=== PATIENT | male | born 1995 | race Two or more races ===

== ENCOUNTER 2016-07-19 23:52 | Emergency (ER) | payer MEDICAID ==
[~2016-07-19] VITALS: Ht 180.3 cm; Wt 118.4 kg
[~2016-07-19 23:52] MED LIST: ALBUPOW26
[2016-07-20 01:01] VITALS: BP 118/48
== END 2016-07-20 02:42 | disposition home or self-care (01) ==
LOC: ER 07-20 00:01
DX: L02.31 Cutaneous abscess of buttock (principal); F17.210 Nicotine dependence, cigarettes, uncomplicated; E66.01 Morbid (severe) obesity due to excess calories; Z68.34 Body mass index [BMI] 34.0-34.9, adult

== ENCOUNTER 2017-01-05 11:18 | Emergency (ER) | payer MEDICAID ==
[~2017-01-05] VITALS: Ht 180.3 cm; Wt 113.4 kg
[2017-01-05 11:24] VITALS: BP 145/95
== END 2017-01-05 14:23 | disposition left against medical advice (07) ==
LOC: ER 11:18
DX: R42 Dizziness and giddiness (principal); F12.10 Cannabis abuse, uncomplicated; Z53.21 Procedure and treatment not carried out due to patient leaving prior to being seen by health care provider

== ENCOUNTER 2021-05-24 07:27 | Emergency (ER) | payer MEDICAID ==
[~2021-05-24] VITALS: Ht 182.9 cm; Wt 129.3 kg
[2021-05-24 07:42] VITALS: BP 130/75
[2021-05-24] MEDS ORDERED: KETOROLAC TROMETH 60MG/2ML VIAL IM ONE (07:45)
[2021-05-24] MEDS ORDERED: IBUP800T27 PO (08:44)
[2021-05-31] MEDS ORDERED: APIX5TAB PO ×3 (11:51→12:02)
== END 2021-05-24 08:51 | disposition home or self-care (01) ==
LOC: ER 07:27
DX: S46.911A Strain of unspecified muscle, fascia and tendon at shoulder and upper arm level, right arm, initial encounter (principal); F17.210 Nicotine dependence, cigarettes, uncomplicated; X58.XXXA Exposure to other specified factors, initial encounter; Y93.89 Activity, other specified; Y99.8 Other external cause status
CPT/HCPCS: 73030; 96372; 99283; J1885

== ENCOUNTER 2021-05-26 21:30 | Inpatient (IN) | payer MEDICAID ==
[~2021-05-26] VITALS: Ht 182.9 cm; Wt 129.5 kg
[~2021-05-26 21:30] MED LIST changes: +IBUP800T27 PO
[2021-05-26] MEDS ORDERED: SODIUM CHLORIDE 0.9% 1,000 ML IVB ONE (22:15)
[2021-05-26] MEDS ORDERED: LIDOCAINE 5% TOPICAL PATCH TOP ONE (22:30)
[2021-05-26] MEDS ORDERED: ONDANSETRON HCL 4 MG/2 ML VIAL IV ONE (22:30)
[2021-05-26] MEDS ORDERED: MORPHINE SULFATE 4 MG/ML SYR/VIAL IV ONE (22:30)
[2021-05-26 23:41] LABS: Basophils # (auto) 0 10 ^3/uL (0-0.2); Basophils % (auto) 0.5 % (0.0-2.0); Eosinophils # (auto) 0.2 10 ^3/uL (0-0.8); Eosinophils % (auto) 2.5 % (0.0-7.0); Hematocrit 40.6 % (41.0-53.0); Hemoglobin 13.5 g/dL (13.5-17.5); Lymphocytes # (auto) 1.1 10 ^3/uL (0.4-5.4); Lymphocytes % (auto) 13.8 % (10.0-50.0); Mean Corpuscular Hemoglobin 30.1 pg (28.0-32.0); Mean Corpuscular Hgb Conc. 33.4 g/dL (32.0-36.0); Mean Corpuscular Volume 90.3 fL (80.0-100.0); Monocytes # (auto) 0.8 10 ^3/uL (0-1.3); Monocytes % (auto) 9.5 % (0.0-12.0); Neutrophils # (auto) 5.9 10 ^3/uL (1.6-8.6); Neutrophils % (auto) 73.7 % (37.0-80.0); Nucleated Red Blood Cells % 0.1 %; Red Blood Cells 4.49 10^6/uL (4.5-5.90)
[2021-05-26 23:55] LABS: Potassium 3.7 mmol/L (3.5-5.1)
[2021-05-27 00:05] LABS: BUN/Creatinine Ratio 12.6; Calcium 8.1 mg/dL (8.5-10.1)
[2021-05-27] MEDS ORDERED: IOHEXOL 350 MG/ML 100ML IJ ONE (00:17)
[2021-05-27] MEDS ORDERED: ONDANSETRON HCL 4 MG/2 ML VIAL IV ONE (09:00)
[2021-05-27] MEDS ORDERED: MORPHINE SULFATE 4 MG/ML SYR/VIAL IV ONE (09:00)
[2021-05-27] MEDS ORDERED: HEPARIN SODIUM (PORCINE) 5000 UNITS/ML 1ML VIAL IV ONE (12:15)
[2021-05-27] MEDS ORDERED: NITROGLYCERIN 0.4 MG SL TAB SL PRN (12:45)
[2021-05-27] MEDS ORDERED: HEPARIN DRIP/D5W 100UNITS/ML 250 ML IV SCH (13:00)
[2021-05-27] MEDS: HEPARIN DRIP/D5W 100UNITS/ML 250 ML IV SCH (13:15)
[2021-05-27 15:07] LABS: Basophils # (auto) 0 10 ^3/uL (0-0.2); Basophils % (auto) 0.4 % (0.0-2.0); Eosinophils # (auto) 0.2 10 ^3/uL (0-0.8); Hematocrit 40.3 % (41.0-53.0); Hemoglobin 13.5 g/dL (13.5-17.5); Lymphocytes # (auto) 1.2 10 ^3/uL (0.4-5.4); Lymphocytes % (auto) 14.4 % (10.0-50.0); Mean Corpuscular Hemoglobin 30.5 pg (28.0-32.0); Mean Corpuscular Hgb Conc. 33.6 g/dL (32.0-36.0); Mean Corpuscular Volume 90.9 fL (80.0-100.0); Monocytes # (auto) 0.7 10 ^3/uL (0-1.3); Monocytes % (auto) 9.1 % (0.0-12.0); Neutrophils % (auto) 74.1 % (37.0-80.0); Red Blood Cells 4.44 10^6/uL (4.5-5.90); White Blood Cell 8.1 10^3/uL (4.4-10.8)
[2021-05-27 15:21] LABS: INR 1.09 (0.9-1.15); Partial Thromboplastin Time 31.9 sec (23.6-33.0)
[2021-05-27] MEDS: cefTRIAXone 1GM/50ML D5W 50 ML IV SCH (16:15)
[2021-05-27] MEDS: AZITHROMYCIN 500MG/ 250ML 250 ML IV SCH (17:53)
[2021-05-27 20:43] LABS: INR 1.11 (0.9-1.15); Partial Thromboplastin Time 36.2 sec (23.6-33.0)
[2021-05-27] MEDS: MORPHINE SULFATE INJECTION 2 MG/ML SYRG IV PRN (22:22)
[2021-05-28] MEDS: HEPARIN DRIP/D5W 100UNITS/ML 250 ML IV SCH ×3 (01:45→23:30)
[2021-05-28 04:08] LABS: INR 1.11 (0.9-1.15); Partial Thromboplastin Time 40.4 sec (23.6-33.0)
[2021-05-28] MEDS: AZITHROMYCIN 500MG/ 250ML 250 ML IV SCH ×2 (07:35→07:36)
[2021-05-28] MEDS: MORPHINE SULFATE INJECTION 2 MG/ML SYRG IV PRN ×2 (07:35→08:57)
[2021-05-28] MEDS: cefTRIAXone 1GM/50ML D5W 50 ML IV SCH (08:06)
[2021-05-28 09:05] LABS: Basophils # (auto) 0.1 10 ^3/uL (0-0.2); Eosinophils # (auto) 0.1 10 ^3/uL (0-0.8); Eosinophils % (auto) 1.6 % (0.0-7.0); Hematocrit 39.9 % (41.0-53.0); Hemoglobin 13.3 g/dL (13.5-17.5); Lymphocytes # (auto) 1.8 10 ^3/uL (0.4-5.4); Lymphocytes % (auto) 22.6 % (10.0-50.0); Mean Corpuscular Hemoglobin 30.5 pg (28.0-32.0); Mean Corpuscular Hgb Conc. 33.3 g/dL (32.0-36.0); Mean Corpuscular Volume 91.5 fL (80.0-100.0); Monocytes # (auto) 0.7 10 ^3/uL (0-1.3); Monocytes % (auto) 9.2 % (0.0-12.0); Neutrophils # (auto) 5.3 10 ^3/uL (1.6-8.6); Neutrophils % (auto) 65.6 % (37.0-80.0); Red Blood Cells 4.36 10^6/uL (4.5-5.90); Red Cell Distribution Width 12.9 % (11.8-14.3); White Blood Cell 8.1 10^3/uL (4.4-10.8)
[2021-05-28] MEDS ORDERED: ONDANSETRON HCL 4 MG/2 ML VIAL IV PRN (10:00)
[2021-05-28] MEDS ORDERED: ACETAMINOPHEN 325 MG TAB PO PRN (10:00)
[2021-05-28] MEDS ORDERED: MORPHINE SULFATE 4 MG/ML SYR/VIAL IV PRN (11:15)
[2021-05-28 12:25] LABS: INR 1.09 (0.9-1.15); Partial Thromboplastin Time 34.5 sec (23.6-33.0)
[2021-05-28] MEDS ORDERED: HEPARIN SODIUM (PORCINE) 5000 UNITS/ML 1ML VIAL IV ONE (13:30)
[2021-05-28 16:00] VITALS: BP 139/71
[2021-05-28 21:11] LABS: INR 1.1 (0.9-1.15); Partial Thromboplastin Time 37.5 sec (23.6-33.0)
[2021-05-28 22:29] VITALS: BP 129/48
[2021-05-28 23:42] VITALS: BP 129/48
[2021-05-29 06:20] VITALS: BP 130/68
[2021-05-29 08:00] VITALS: BP 132/58
[2021-05-29 08:03] LABS: Basophils # (auto) 0 10 ^3/uL (0-0.2); Basophils % (auto) 0.6 % (0.0-2.0); Eosinophils # (auto) 0.3 10 ^3/uL (0-0.8); Eosinophils % (auto) 4.6 % (0.0-7.0); Hematocrit 39.3 % (41.0-53.0); Hemoglobin 13.5 g/dL (13.5-17.5); Lymphocytes # (auto) 1.7 10 ^3/uL (0.4-5.4); Lymphocytes % (auto) 26.4 % (10.0-50.0); Mean Corpuscular Hemoglobin 30.5 pg (28.0-32.0); Mean Corpuscular Hgb Conc. 34.2 g/dL (32.0-36.0); Mean Corpuscular Volume 89.1 fL (80.0-100.0); Monocytes # (auto) 0.6 10 ^3/uL (0-1.3); Monocytes % (auto) 9.1 % (0.0-12.0); Neutrophils # (auto) 3.9 10 ^3/uL (1.6-8.6); Neutrophils % (auto) 59.3 % (37.0-80.0); Nucleated Red Blood Cells % 0.3 %; Red Blood Cells 4.41 10^6/uL (4.5-5.90); Red Cell Distribution Width 12.9 % (11.8-14.3); White Blood Cell 6.6 10^3/uL (4.4-10.8)
[2021-05-29 08:15] LABS: INR 1.1 (0.9-1.15); Partial Thromboplastin Time 35.5 sec (23.6-33.0)
[2021-05-29] MEDS: HEPARIN DRIP/D5W 100UNITS/ML 250 ML IV SCH ×2 (08:17→15:28)
[2021-05-29] MEDS: HYDROcodone-ACET 5/325MG TAB PO PRN ×3 (08:58→22:14)
[2021-05-29] MEDS: cefTRIAXone 1GM/50ML D5W 50 ML IV SCH (10:39)
[2021-05-29] MEDS: AZITHROMYCIN 500MG/ 250ML 250 ML IV SCH (12:50)
[2021-05-29 13:00] VITALS: BP 140/79
[2021-05-29 15:33] LABS: INR 1.05 (0.9-1.15); Partial Thromboplastin Time 27.5 sec (23.6-33.0)
[2021-05-29 16:00] VITALS: BP 135/59
[2021-05-29] MEDS ORDERED: HEPARIN SODIUM (PORCINE) 5000 UNITS/ML 1ML VIAL IV ONE (16:00)
[2021-05-29 16:55] VITALS: BP 135/59
[2021-05-29 22:00] VITALS: BP 125/54
[2021-05-29 23:09] LABS: INR 1.07 (0.9-1.15); Partial Thromboplastin Time 48.1 sec (23.6-33.0)
[2021-05-30] MEDS: HEPARIN DRIP/D5W 100UNITS/ML 250 ML IV SCH (00:27)
[2021-05-30 04:55] VITALS: BP 108/55
[2021-05-30 07:09] LABS: Basophils # (auto) 0 10 ^3/uL (0-0.2); Basophils % (auto) 0.7 % (0.0-2.0); Eosinophils # (auto) 0.4 10 ^3/uL (0-0.8); Eosinophils % (auto) 6.8 % (0.0-7.0); Hematocrit 40.8 % (41.0-53.0); Hemoglobin 13.9 g/dL (13.5-17.5); Lymphocytes # (auto) 1.7 10 ^3/uL (0.4-5.4); Lymphocytes % (auto) 27.7 % (10.0-50.0); Mean Corpuscular Hemoglobin 30.7 pg (28.0-32.0); Mean Corpuscular Hgb Conc. 34.1 g/dL (32.0-36.0); Monocytes # (auto) 0.5 10 ^3/uL (0-1.3); Neutrophils # (auto) 3.6 10 ^3/uL (1.6-8.6); Neutrophils % (auto) 56.8 % (37.0-80.0); Nucleated Red Blood Cells % 0.1 %; Red Blood Cells 4.53 10^6/uL (4.5-5.90); Red Cell Distribution Width 12.7 % (11.8-14.3); White Blood Cell 6.2 10^3/uL (4.4-10.8)
[2021-05-30 07:10] LABS: INR 1.08 (0.9-1.15); Partial Thromboplastin Time 49.8 sec (23.6-33.0)
[2021-05-30 07:12] LABS: Potassium 4.1 mmol/L (3.5-5.1)
[2021-05-30 07:15] LABS: BUN/Creatinine Ratio 15.5
[2021-05-30 08:29] VITALS: BP 107/76
[2021-05-30] MEDS: APIXABAN 5 MG TAB PO SCH ×2 (09:00→18:26)
[2021-05-30] MEDS: AZITHROMYCIN 500MG/ 250ML 250 ML IV SCH (09:02)
[2021-05-30] MEDS: cefTRIAXone 1GM/50ML D5W 50 ML IV SCH (09:02)
[2021-05-30] MEDS: HYDROcodone-ACET 5/325MG TAB PO PRN (09:03)
[2021-05-30 12:53] VITALS: BP 121/64
[2021-05-30 14:18] LABS: INR 1.07 (0.9-1.15); Partial Thromboplastin Time 29.1 sec (23.6-33.0)
[2021-05-30 16:45] VITALS: BP 125/70
[2021-05-30 22:00] VITALS: BP 135/69
[2021-05-31 05:00] VITALS: BP 134/65
[2021-05-31 09:00] VITALS: BP 134/74
[2021-05-31] MEDS: APIXABAN 5 MG TAB PO SCH ×2 (09:07→18:18)
[2021-05-31] MEDS: cefTRIAXone 1GM/50ML D5W 50 ML IV SCH (09:08)
[2021-05-31] MEDS: AZITHROMYCIN 500MG/ 250ML 250 ML IV SCH (09:09)
[2021-05-31] MEDS ORDERED: APIX5TAB PO ×4 (11:51→12:02)
[2021-05-31 13:00] VITALS: BP 146/71
[2021-05-31 17:00] VITALS: BP 143/86
[2021-05-31 17:28] VITALS: BP 143/86
[2021-06-06] MEDS ORDERED: APIXABAN 5 MG TAB PO SCH (08:00)
== END 2021-05-31 20:32 | disposition home or self-care (01) | DRG 134 ==
LOC: ER 21:30 → TELE 05-27 12:43 → TELE-EAST 05-28 15:10
PROVIDERS: ADMIT Internal Medicine; ATTEND Internal Medicine
DX: I26.99 Other pulmonary embolism without acute cor pulmonale (principal); J96.01 Acute respiratory failure with hypoxia; E66.01 Morbid (severe) obesity due to excess calories; J98.11 Atelectasis; Z20.822 Contact with and (suspected) exposure to COVID-19; F17.210 Nicotine dependence, cigarettes, uncomplicated; Z79.01 Long term (current) use of anticoagulants; Z68.30 Body mass index [BMI] 30.0-30.9, adult
CPT/HCPCS: 36415; 36600; 71046; 71275; 80048; 82805; 83735; 84484; 85025; 85379; 85610; 85730; 87426; 93005; 93306; 93970; 96361; 96374; 96375; 97163; G0378; J0696; J2405

== ENCOUNTER 2021-07-19 13:42 | Inpatient (IN) | payer MEDICAID ==
[~2021-07-19] VITALS: Ht 180.3 cm; Wt 148.2 kg
[~2021-07-19 13:42] MED LIST changes: +APIX5TAB PO; -IBUP800T27 PO
[2021-07-19] MEDS ORDERED: ONDANSETRON HCL 4 MG/2 ML VIAL IV ONE (15:00)
[2021-07-19] MEDS ORDERED: MORPHINE SULFATE 4 MG/ML SYR/VIAL IV ONE (15:00)
[2021-07-19] MEDS ORDERED: IOHEXOL 350 MG/ML 100ML IJ ONE (15:22)
[2021-07-19 15:42] LABS: Basophils # (auto) 0.1 10 ^3/uL (0-0.2); Basophils % (auto) 0.6 % (0.0-2.0); Eosinophils # (auto) 0.1 10 ^3/uL (0-0.8); Eosinophils % (auto) 0.7 % (0.0-7.0); Hematocrit 44.5 % (41.0-53.0); Hemoglobin 15.1 g/dL (13.5-17.5); Lymphocytes # (auto) 1.2 10 ^3/uL (0.4-5.4); Lymphocytes % (auto) 13.9 % (10.0-50.0); Mean Corpuscular Hemoglobin 30.1 pg (28.0-32.0); Mean Corpuscular Volume 88.7 fL (80.0-100.0); Monocytes # (auto) 0.7 10 ^3/uL (0-1.3); Monocytes % (auto) 8.9 % (0.0-12.0); Neutrophils # (auto) 6.4 10 ^3/uL (1.6-8.6); Neutrophils % (auto) 75.9 % (37.0-80.0); Nucleated Red Blood Cells % 0.1 %; Red Blood Cells 5.02 10^6/uL (4.5-5.90); Red Cell Distribution Width 13.6 % (11.8-14.3); White Blood Cell 8.4 10^3/uL (4.4-10.8)
[2021-07-19 15:51] LABS: Albumin 3.5 g/dL (3.4-5.0); Calcium 9.2 mg/dL (8.5-10.1); Potassium 4.2 mmol/L (3.5-5.1)
[2021-07-19 15:57] LABS: BUN/Creatinine Ratio 7.9; Total Protein 8.1 g/dL (6.4-8.2)
[2021-07-19] MEDS ORDERED: cefTRIAXone 1GM/50ML D5W 50 ML IV ONE (16:30)
[2021-07-19] MEDS: SODIUM CHLORIDE 0.9% 1,000 ML IV SCH (17:52)
[2021-07-19] MEDS ORDERED: ACETAMINOPHEN 325 MG TAB PO PRN (18:00)
[2021-07-19] MEDS: HYDROcodone-ACET 5/325MG TAB PO PRN (18:09)
[2021-07-19] MEDS ORDERED: AZITHROMYCIN 500MG/ 250ML 250 ML IV SCH (18:30)
[2021-07-19 20:55] VITALS: BP 136/61
[2021-07-19 22:00] VITALS: BP 121/62
[2021-07-20] MEDS: HYDROcodone-ACET 5/325MG TAB PO PRN ×4 (00:03→21:31)
[2021-07-20 05:00] VITALS: BP 136/40
[2021-07-20 05:43] LABS: Basophils # (auto) 0 10 ^3/uL (0-0.2); Basophils % (auto) 0.4 % (0.0-2.0); Eosinophils # (auto) 0.1 10 ^3/uL (0-0.8); Eosinophils % (auto) 1.1 % (0.0-7.0); Hematocrit 40.2 % (41.0-53.0); Lymphocytes # (auto) 1.9 10 ^3/uL (0.4-5.4); Lymphocytes % (auto) 23.2 % (10.0-50.0); Mean Corpuscular Hemoglobin 30.8 pg (28.0-32.0); Mean Corpuscular Hgb Conc. 34.9 g/dL (32.0-36.0); Mean Corpuscular Volume 88.1 fL (80.0-100.0); Monocytes % (auto) 12.1 % (0.0-12.0); Neutrophils # (auto) 5.2 10 ^3/uL (1.6-8.6); Neutrophils % (auto) 63.2 % (37.0-80.0); Nucleated Red Blood Cells % 0.1 %; Red Blood Cells 4.56 10^6/uL (4.5-5.90); Red Cell Distribution Width 13.5 % (11.8-14.3); White Blood Cell 8.2 10^3/uL (4.4-10.8)
[2021-07-20 05:50] LABS: Calcium 8.5 mg/dL (8.5-10.1); Potassium 4.1 mmol/L (3.5-5.1)
[2021-07-20 05:52] LABS: BUN/Creatinine Ratio 7.8
[2021-07-20 05:55] LABS: Bilirubin, Total 1.5 mg/dL (0.2-1.0); Total Protein 6.9 g/dL (6.4-8.2)
[2021-07-20 09:00] VITALS: BP 128/56
[2021-07-20] MEDS ORDERED: ENOXAPARIN SOD 40 MG/0.4 ML SYRINGE SC SCH ×2 (10:00→22:00)
[2021-07-20] MEDS: CEFTRIAXONE SODIUM 2 GM in D5W 5% 50 ML IV SCH (10:39)
[2021-07-20] MEDS: SODIUM CHLORIDE 0.9% 1,000 ML IV SCH (10:40)
[2021-07-20] MEDS: AZITHROMYCIN 500MG/ 250ML 250 ML IV SCH (12:39)
[2021-07-20 13:00] VITALS: BP 121/77
[2021-07-20 14:59] VITALS: BP 128/56
[2021-07-20 15:22] LABS: Cholesterol 145 mg/dL (< 200)
[2021-07-20 15:25] LABS: HDL Cholesterol 42 mg/dL (40-59); LDL Cholesterol 92 mg/dL (< 100); Triglycerides 68 mg/dL (< 150)
[2021-07-20 17:00] VITALS: BP 135/56
[2021-07-20 22:00] VITALS: BP 122/43
[2021-07-20 22:16] LABS: Urine Bacteria NONE SEEN /hpf (None Seen); Urine Blood Negative /uL (Negative); Urine Specific Gravity 1.007 (1.001-1.035); Urine WBC <1 /hpf (0 - 3)
[2021-07-20] MEDS: ALBUTEROL SULF 2.5 MG/0.5ML(0.5%) NEB SOLN NEB PRN (22:19)
[2021-07-20] MEDS: BUDESONIDE (INHALATION) 0.5 MG/2 ML NEB NEB SCH (22:19)
[2021-07-20 22:31] LABS: Alcohol, Urine < 3.0 mg/dL (0-10); Amphetamine Screen, Urine NEGATIVE (NEGATIVE); Barbiturate Scree,Urine NEGATIVE (NEGATIVE); Benzodiazephine Screen, Urine NEGATIVE (NEGATIVE); Cannabinoid Screen, Urine NEGATIVE (NEGATIVE); Cocaine Screen, Urine NEGATIVE (NEGATIVE); Opiate Scree,Urine NEGATIVE (NEGATIVE); Phencyclidine Screen, Urine NEGATIVE (NEGATIVE)
[2021-07-21] MEDS: SODIUM CHLORIDE 0.9% 1,000 ML IV SCH ×2 (03:05→09:40)
[2021-07-21 05:00] VITALS: BP 118/60
[2021-07-21] MEDS: HYDROcodone-ACET 5/325MG TAB PO PRN ×2 (05:27→18:20)
[2021-07-21] MEDS: ALBUTEROL SULF 2.5 MG/0.5ML(0.5%) NEB SOLN NEB PRN ×2 (06:58→22:23)
[2021-07-21] MEDS: BUDESONIDE (INHALATION) 0.5 MG/2 ML NEB NEB SCH ×2 (06:58→22:23)
[2021-07-21 09:14] VITALS: BP 112/52
[2021-07-21] MEDS: CEFTRIAXONE SODIUM 2 GM in D5W 5% 50 ML IV SCH (09:31)
[2021-07-21] MEDS: ENOXAPARIN SOD 40 MG/0.4 ML SYRINGE SC SCH (09:32)
[2021-07-21] MEDS: AZITHROMYCIN 500MG/ 250ML 250 ML IV SCH (12:09)
[2021-07-21 13:00] VITALS: BP 121/63
[2021-07-21 17:15] VITALS: BP 117/68
[2021-07-21 22:00] VITALS: BP 114/61
[2021-07-22] MEDS: HYDROcodone-ACET 5/325MG TAB PO PRN (00:25)
[2021-07-22 04:53] VITALS: BP 106/59
[2021-07-22 08:40] VITALS: BP 107/58
[2021-07-22] MEDS: ENOXAPARIN SOD 40 MG/0.4 ML SYRINGE SC SCH (09:14)
[2021-07-22] MEDS: CEFTRIAXONE SODIUM 2 GM in D5W 5% 50 ML IV SCH (09:15)
[2021-07-22] MEDS: ALBUTEROL SULF 2.5 MG/0.5ML(0.5%) NEB SOLN NEB PRN (10:39)
[2021-07-22] MEDS: BUDESONIDE (INHALATION) 0.5 MG/2 ML NEB NEB SCH (10:39)
[2021-07-22] MEDS: AZITHROMYCIN 500MG/ 250ML 250 ML IV SCH (12:21)
[2021-07-22 13:00] VITALS: BP 127/64
[2021-07-22] MEDS: SODIUM CHLORIDE 0.9% 1,000 ML IV SCH (14:03)
[2021-07-22] MEDS ORDERED: PRED20TA2 PO (15:16)
[2021-07-22] MEDS ORDERED: ALBU108A5 IN (15:16)
[2021-07-22] MEDS ORDERED: LEVO-28 PO (15:16)
[2021-07-22 16:20] VITALS: BP 121/64
== END 2021-07-22 18:12 | disposition home or self-care (01) | DRG 139 ==
LOC: ER 13:42 → OVERFLOW 17:32 → WEST WING 20:19
PROVIDERS: ADMIT Internal Medicine; ATTEND Hospitalist
DX: J18.9 Pneumonia, unspecified organism (principal); J96.00 Acute respiratory failure, unspecified whether with hypoxia or hypercapnia; Z20.822 Contact with and (suspected) exposure to COVID-19; E66.01 Morbid (severe) obesity due to excess calories; F17.210 Nicotine dependence, cigarettes, uncomplicated; G89.29 Other chronic pain; Z68.42 Body mass index [BMI] 45.0-49.9, adult; Z79.01 Long term (current) use of anticoagulants
CPT/HCPCS: 36415; 71275; 80053; 80061; 80307; 81001; 83036; 83605; 85025; 87040; 93005; 94640; 96365; 96366; 96368; G0378; J0696; J7060

== ENCOUNTER 2023-03-28 13:28 | Inpatient (IN) | payer MEDICAID ==
[~2023-03-28] VITALS: Ht 180.3 cm; Wt 130.3 kg
[~2023-03-28 13:28] MED LIST changes: +ALBU108A5 IN; +LEVO500T91 PO; +PRED20TA2 PO
[2023-03-28] MEDS ORDERED: ENOXAPARIN SOD 100 MG/1 ML SYRINGE SC ONE (14:30)
[2023-03-28] MEDS ORDERED: HYDROcodone-ACET 5/325MG TAB PO ONE (14:45)
[2023-03-28 14:58] LABS: Basophils # (auto) 0.1 10 ^3/uL (0-0.2); Basophils % (auto) 0.8 % (0.0-2.0); Eosinophils # (auto) 0.4 10 ^3/uL (0-0.8); Eosinophils % (auto) 4.3 % (0.0-7.0); Hematocrit 47.6 % (41.0-53.0); Lymphocytes # (auto) 1.3 10 ^3/uL (0.4-5.4); Lymphocytes % (auto) 14.2 % (10.0-50.0); Mean Corpuscular Hemoglobin 30.3 pg (28.0-32.0); Mean Corpuscular Hgb Conc. 33.6 g/dL (32.0-36.0); Mean Corpuscular Volume 90.2 fL (80.0-100.0); Monocytes # (auto) 0.7 10 ^3/uL (0-1.3); Monocytes % (auto) 7.8 % (0.0-12.0); Neutrophils # (auto) 6.7 10 ^3/uL (1.6-8.6); Neutrophils % (auto) 72.9 % (37.0-80.0); Red Blood Cells 5.28 10^6/uL (4.5-5.90); Red Cell Distribution Width 13.2 % (11.8-14.3); White Blood Cell 9.2 10^3/uL (4.4-10.8)
[2023-03-28 15:10] LABS: INR 1.14 (0.9-1.15); Prothrombin Time 11.9 sec (9.3-11.8)
[2023-03-28 15:12] LABS: Alanine Aminotransferase 38 U/L (7-40); Albumin 4.2 g/dL (3.2-4.8); Alkaline Phosphatase 94 U/L (46-116); Anion Gap 7 (5-15); Aspartate Aminotransferase 33 U/L (13-40); BUN/Creatinine Ratio 16.4 (10.0-20.0); Blood Urea Nitrogen 20 mg/dL (9-23); Calcium 9.1 mg/dL (8.5-10.1); Carbon Dioxide 29 mmol/L (20-30); Chloride 105 mmol/L (98-107); Glucose 79 mg/dL (74-106); Potassium 4.7 mmol/L (3.5-5.1); Sodium 141 mmol/L (136-145)
[2023-03-28 15:13] LABS: Bilirubin, Total 1.4 mg/dL (0.2-1.0); Total Protein 6.5 g/dL (5.7-8.2)
[2023-03-28] MEDS ORDERED: DOCUSATE SOD 100 MG CAP PO PRN (15:45)
[2023-03-28] MEDS ORDERED: ONDANSETRON HCL 4 MG/2 ML VIAL IV PRN (15:45)
[2023-03-28] MEDS: SODIUM CHLORIDE 0.9% 1,000 ML IV SCH (17:14)
[2023-03-28] MEDS: ENOXAPARIN SOD 120 MG/0.8 ML SYRINGE SC SCH (22:26)
[2023-03-28] MEDS: MORPHINE SULFATE INJ 2 MG/ml SYRG IV PRN (22:55)
[2023-03-28 23:58] LABS: Amphetamine Screen, Urine Pos (NEGATIVE)
[2023-03-28 23:59] LABS: Barbiturate Scree,Urine Neg (NEGATIVE); Benzodiazephine Screen, Urine Neg (NEGATIVE); Cannabinoid Screen, Urine Neg (NEGATIVE); Cocaine Screen, Urine Neg (NEGATIVE); Opiate Scree,Urine Pos (NEGATIVE); Phencyclidine Screen, Urine Neg (NEGATIVE)
[2023-03-29] MEDS: SODIUM CHLORIDE 0.9% 1,000 ML IV SCH ×3 (00:05→16:45)
[2023-03-29 05:37] LABS: Basophils # (auto) 0.1 10 ^3/uL (0-0.2); Basophils % (auto) 0.9 % (0.0-2.0); Eosinophils # (auto) 0.3 10 ^3/uL (0-0.8); Eosinophils % (auto) 4.2 % (0.0-7.0); Hematocrit 40.7 % (41.0-53.0); Hemoglobin 13.7 g/dL (13.5-17.5); Lymphocytes # (auto) 2.3 10 ^3/uL (0.4-5.4); Lymphocytes % (auto) 31.7 % (10.0-50.0); Mean Corpuscular Hemoglobin 30.6 pg (28.0-32.0); Mean Corpuscular Hgb Conc. 33.6 g/dL (32.0-36.0); Monocytes # (auto) 0.6 10 ^3/uL (0-1.3); Monocytes % (auto) 7.7 % (0.0-12.0); Neutrophils # (auto) 4.1 10 ^3/uL (1.6-8.6); Neutrophils % (auto) 55.5 % (37.0-80.0); Red Blood Cells 4.47 10^6/uL (4.5-5.90); Red Cell Distribution Width 13.1 % (11.8-14.3); White Blood Cell 7.3 10^3/uL (4.4-10.8)
[2023-03-29 05:55] LABS: Alanine Aminotransferase 28 U/L (7-40); Alkaline Phosphatase 71 U/L (46-116); Anion Gap 8 (5-15); BUN/Creatinine Ratio 15.2 (10.0-20.0); Blood Urea Nitrogen 14 mg/dL (9-23); Calcium 8.4 mg/dL (8.5-10.1); Carbon Dioxide 23 mmol/L (20-30); Chloride 107 mmol/L (98-107); Potassium 4.2 mmol/L (3.5-5.1); Sodium 138 mmol/L (136-145)
[2023-03-29 05:56] LABS: Albumin 3.6 g/dL (3.2-4.8); Aspartate Aminotransferase 19 U/L (13-40); Bilirubin, Total 0.8 mg/dL (0.2-1.0); Total Protein 5.7 g/dL (5.7-8.2)
[2023-03-29 06:11] LABS: Glucose 89 mg/dL (74-106)
[2023-03-29 08:00] VITALS: BP 150/65; PULSE 81; RESP 20; TEMP 98.4; O2SAT 92; O2SAT 93
[2023-03-29] MEDS: ENOXAPARIN SOD 120 MG/0.8 ML SYRINGE SC SCH ×2 (10:33→21:22)
[2023-03-29 12:00] VITALS: BP 97/41; PULSE 72; RESP 20; TEMP 97.9; O2SAT 99
[2023-03-29] MEDS ORDERED: APIX5TAB PO (12:43)
[2023-03-29 15:35] VITALS: BP 111/63; PULSE 75; RESP 20; TEMP 97.8; O2SAT 99
[2023-03-29 16:00] VITALS: BP 127/59; PULSE 81; RESP 20; TEMP 98.2; O2SAT 96
[2023-03-29 20:00] VITALS: PULSE 89; RESP 16; O2SAT 97
[2023-03-29] MEDS: MORPHINE SULFATE INJ 2 MG/ml SYRG IV PRN (21:23)
[2023-03-29 22:00] VITALS: BP 133/66; PULSE 89; RESP 16; TEMP 98.8; O2SAT 97
[2023-03-30] MEDS: SODIUM CHLORIDE 0.9% 1,000 ML IV SCH (01:05)
[2023-03-30 05:00] VITALS: BP 124/65; PULSE 68; RESP 16; TEMP 97.5; O2SAT 96
[2023-03-30 07:30] VITALS: O2SAT 93
[2023-03-30 08:00] VITALS: BP 114/61; PULSE 75; RESP 20; TEMP 97.9; O2SAT 97
[2023-03-30 08:57] LABS: Basophils # (auto) 0 10 ^3/uL (0-0.2); Basophils % (auto) 0.8 % (0.0-2.0); Eosinophils # (auto) 0.2 10 ^3/uL (0-0.8); Eosinophils % (auto) 4.3 % (0.0-7.0); Hematocrit 39.8 % (41.0-53.0); Hemoglobin 13.4 g/dL (13.5-17.5); Lymphocytes # (auto) 1.4 10 ^3/uL (0.4-5.4); Lymphocytes % (auto) 25.4 % (10.0-50.0); Mean Corpuscular Hemoglobin 30.4 pg (28.0-32.0); Mean Corpuscular Hgb Conc. 33.5 g/dL (32.0-36.0); Mean Corpuscular Volume 90.6 fL (80.0-100.0); Monocytes # (auto) 0.3 10 ^3/uL (0-1.3); Monocytes % (auto) 6.3 % (0.0-12.0); Neutrophils # (auto) 3.4 10 ^3/uL (1.6-8.6); Neutrophils % (auto) 63.2 % (37.0-80.0); Nucleated Red Blood Cells % 0.1 %; Red Cell Distribution Width 13.1 % (11.8-14.3); White Blood Cell 5.5 10^3/uL (4.4-10.8)
[2023-03-30 09:13] LABS: Anion Gap 6 (5-15); Carbon Dioxide 26 mmol/L (20-30); Chloride 107 mmol/L (98-107); Potassium 4.1 mmol/L (3.5-5.1); Sodium 139 mmol/L (136-145)
[2023-03-30 09:14] LABS: Calcium 8.6 mg/dL (8.5-10.1)
[2023-03-30 09:18] LABS: Glucose 146 mg/dL (74-106)
[2023-03-30 09:19] LABS: BUN/Creatinine Ratio 9.1 (10.0-20.0); Blood Urea Nitrogen 7 mg/dL (9-23)
[2023-03-30] MEDS ORDERED: APIXABAN 5 MG TAB PO SCH (10:00)
[2023-04-06] MEDS ORDERED: APIXABAN 5 MG TAB PO SCH (22:00)
== END 2023-03-30 09:35 | disposition home or self-care (01) | DRG 197 ==
LOC: ER 13:28 → OVERFLOW 16:37 → WEST WING 03-29 05:40
PROVIDERS: ADMIT Internal Medicine Pulmonary Disease; ATTEND Internal Medicine Pulmonary Disease
DX: I82.412 Acute embolism and thrombosis of left femoral vein (principal); E66.01 Morbid (severe) obesity due to excess calories; F17.210 Nicotine dependence, cigarettes, uncomplicated; F15.90 Other stimulant use, unspecified, uncomplicated; Z86.711 Personal history of pulmonary embolism; Z71.6 Tobacco abuse counseling; Z68.39 Body mass index [BMI] 39.0-39.9, adult
CPT/HCPCS: 36415; 80048; 80053; 80307; 83880; 85025; 85610; 93971; 96372; 96374; G0378

== ENCOUNTER 2024-02-09 17:50 | Emergency (ER) | payer MEDICAID ==
[~2024-02-09] VITALS: Ht 180.3 cm; Wt 134.2 kg
[~2024-02-09 17:50] MED LIST changes: -ALBU108A5 IN; -ALBUPOW26; -LEVO500T91 PO; -PRED20TA2 PO
[2024-02-09] MEDS ORDERED: IBUP-1456 PO (18:29)
[2024-02-09 18:43] VITALS: BP 130/88; PULSE 68; RESP 18; TEMP 97.6; O2SAT 98
== END 2024-02-09 18:45 | disposition home or self-care (01) ==
LOC: ER 17:50
DX: G56.22 Lesion of ulnar nerve, left upper limb (principal); F17.210 Nicotine dependence, cigarettes, uncomplicated; Z79.899 Other long term (current) drug therapy; Z86.718 Personal history of other venous thrombosis and embolism

== ENCOUNTER 2024-08-24 18:03 | Emergency (ER) | payer MEDICAID ==
[~2024-08-24] VITALS: Ht 180.3 cm; Wt 140.8 kg
[~2024-08-24 18:03] MED LIST changes: +IBUP-1456 PO
[2024-08-24 20:32] VITALS: BP 131/65; PULSE 77; RESP 18; TEMP 97.8; O2SAT 96
[2024-08-24] MEDS: IBUPROFEN 400 MG TAB PO ONE (20:50)
[2024-08-24] MEDS: HYDROcodone-ACET 5/325MG TAB PO ONE (20:50)
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
== END 2024-08-24 21:25 | disposition home or self-care (01) ==
LOC: ER 18:03
DX: S00.33XA Contusion of nose, initial encounter (principal); S00.12XA Contusion of left eyelid and periocular area, initial encounter; S00.11XA Contusion of right eyelid and periocular area, initial encounter; S09.93XA Unspecified injury of face, initial encounter; G44.319 Acute post-traumatic headache, not intractable; S50.312A Abrasion of left elbow, initial encounter; F17.210 Nicotine dependence, cigarettes, uncomplicated; F19.90 Other psychoactive substance use, unspecified, uncomplicated; Z79.01 Long term (current) use of anticoagulants; Z86.711 Personal history of pulmonary embolism; V29.888A Rider (driver) (passenger) of other motorcycle injured in other specified transport accidents, initial encounter; Y93.89 Activity, other specified; Y92.89 Other specified places as the place of occurrence of the external cause; Y99.8 Other external cause status
CPT/HCPCS: 70450; 70486

== ENCOUNTER 2024-09-03 12:22 | Emergency (ER) | payer MEDICAID ==
[~2024-09-03] VITALS: Ht 182.9 cm; Wt 141.5 kg
[2024-09-03 12:59] VITALS: BP 132/71; PULSE 72; RESP 20; TEMP 97.7; O2SAT 99
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
--- NOTE | 2024-09-03 13:31 | DVH ---
EXAM: XY L FOOT 2 VIEW XRAY CLINICAL INDICATION: PAIN, NO INJURY TECHNIQUE: XY L FOOT 2 VIEW XRAY Comparison: None FINDINGS/IMPRESSION: There is no evidence of acute fracture or dislocation. The visualized joint space is well maintained. The alignment is anatomical. There is no radiopaque foreign body.
== END 2024-09-03 13:39 | disposition home or self-care (01) ==
LOC: ER 12:22
DX: S93.602A Unspecified sprain of left foot, initial encounter (principal); F17.210 Nicotine dependence, cigarettes, uncomplicated; F12.10 Cannabis abuse, uncomplicated; X58.XXXA Exposure to other specified factors, initial encounter; Y93.89 Activity, other specified; Y92.89 Other specified places as the place of occurrence of the external cause; Y99.8 Other external cause status
CPT/HCPCS: 73620

== ENCOUNTER 2025-04-18 18:21 | Emergency (ER) | payer MEDICAID ==
[~2025-04-18] VITALS: Ht 182.9 cm; Wt 148.1 kg
[2025-04-18 18:28] VITALS: TEMP 97.9
--- NOTE | 2025-04-18 19:27 | DVH ---
CLINICAL INDICATION: Right shoulder pain TECHNIQUE: 4 radiographic views of the right shoulder were obtained. COMPARISON: R SHOULDER COMPLETE XRAY on DOS: 05/24/21 FINDINGS/IMPRESSION: Elevation of the clavicle in relation to the acromion process is noted. No acute fracture. This is consistent with a grade 3 AC joint separation. Recommend physical examination and correlation with acute clinical symptomatology with palpation over the acromioclavicular joint. Age of this finding is uncertain.
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
[2025-04-18 21:01] VITALS: BP 125/60; PULSE 60; RESP 18; O2SAT 96
== END 2025-04-18 21:12 | disposition home or self-care (01) ==
LOC: ER 18:21
DX: S43.101A Unspecified dislocation of right acromioclavicular joint, initial encounter (principal); F17.210 Nicotine dependence, cigarettes, uncomplicated; Z79.01 Long term (current) use of anticoagulants; X58.XXXA Exposure to other specified factors, initial encounter; Y93.89 Activity, other specified; Y92.89 Other specified places as the place of occurrence of the external cause; Y99.8 Other external cause status
CPT/HCPCS: 73030